=== PATIENT | male | born 1945 | race Caucasian/White ===

== ENCOUNTER 2016-09-29 23:14 | Emergency (ER) | payer OTHER ==
[~2016-09-29] VITALS: Ht 175.3 cm; Wt 80.0 kg
[~2016-09-29 23:14] MED LIST: CA CHLORIDE 10% 10 ML SYRINGE ONE; CARV12.598 GTB; CARV3.12 PO; CLOP75TA27 GTB; CLOP75TA27 PO; DEXTROSE 50% 50 ML SYRINGE ONE; DOCU-144 GTB; DOCU-144 PO; EPINEPHrine 0.1 MG/ML SYG ONE; LEVE10006 GTB; LEVE10006 PO; LORA-441 GTB; LORA2ORA2 PO; MAGNESIUM SULFATE 1 GM/100 ML D5W IVPB ONE; NA BICARBONATE 8.4% 50 ML SYG ONE; NIT4 SL; PANT40TA3 PO; PANT40TA4 PO; VALP250S3 GTB
[2016-09-29 23:15] VITALS: Ht 175.3 cm; Wt 80.0 kg
[2016-09-29] MEDS ORDERED: CLON1TAB3 PO (23:28)
[2016-09-29] MEDS ORDERED: LEVE-5 PO (23:29)
[2016-09-29] MEDS ORDERED: LOSA25TA5 PO (23:29)
[2016-09-29] MEDS ORDERED: VLP250480 PO (23:31)
[2016-09-29] MEDS ORDERED: NORepinephrine 8MG/250 ML (PMX 250 ML ONE (23:32)
[2016-09-29] MEDS ORDERED: MAGNESIUM SULFATE 1 GM/D5W 100 ML ONE (23:39)
--- NOTE | 2016-09-30 00:16 | ERA ---
ER Documentation Chief Complaint Date/Time DATE: 09/30/16 TIME: 00:14 Chief Complaint HPI 70-year-old man brought in by EMS from home for cardiac arrest. His son states he helped him to the toilet and while having a bowel movement began coughing and appeared short of breath. The coughing episode lasted for about 5 minutes and then he lost consciousness, collapsed, and stopped breathing. He called 911 right away and upon EMS arrival patient had lost pulses and initial rhythm was ventricular fibrillation. An intraosseous line was established to the right lower extremity and patient was given epinephrine and defibrillated a couple of times prior to arrival. He was placed on high flow oxygen via positive pressure bag ventilation. Patient remained unresponsive and ventricular fibrillation at the scene and throughout transport. 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 Patient was bedbound and had to be assisted to the bathroom and with feeding. He had an open tracheal stoma and normally breathes unassisted and has chronic severe dysphagia and requires a gastrostomy tube. ROS All systems reviewed and are negative except as per history of present illness. Medications Home Meds Reported Medications Valproic Acid* (Valproic Acid* Liq) 250 Mg/5 Ml Syrup, 250 MG PO QHS, ML 09/29/16 Losartan Potassium* (Losartan Potassium*) 25 Mg Tablet, 50 MG PO BID, TAB 09/29/16 Levetiracetam* (Keppra*) 500 Mg Tablet, 500 MG PO DAILY, TAB 09/29/16 Clonazepam* (Clonazepam*) 1 Mg Tablet, 2 MG PO QHS Y for ANXIETY, TAB 09/29/16 Discontinued Reported Medications Valproate Sodium (Valproic Acid) 250 Mg/5 Ml Solution, 250 MG GTB BID 09/09/13 Pantoprazole* (Protonix*) 40 Mg Tablet.dr, 40 MG PO DAILY 09/09/13 Nitroglycerin* (Nitrostat*) 0.4 Mg Tab.subl, 0.4 MG SL Q5 MIN Y 09/09/13 Lorazepam* (Ativan*) 0.5 Mg Tablet, 1 MG GTB Q4 Y 09/09/13 Levetiracetam* (Levetiracetam*) 1,000 Mg Tablet, 1000 MG GTB BID 09/09/13 Docusate Sodium* (Colace*) 100 Mg Capsule, 100 MG GTB BID 09/09/13 Clopidogrel Bisulfate (Clopidogrel) 75 Mg Tablet, 75 MG GTB DAILY 09/09/13 Carvedilol* (Coreg*) 12.5 Mg Tablet, 12.5 MG GTB BID 09/09/13 Pantoprazole (Protonix) 40 Mg Tabec, 40 MG PO DAILY 09/05/13 Docusate Sodium* (Colace*) 100 Mg Capsule, 100 MG PO BID 09/05/13 Lorazepam* (Ativan* Intensol) 2 Mg/1 Ml Oral.conc, 1 MG PO Q4 Y 09/05/13 Clopidogrel Bisulfate (Clopidogrel) 75 Mg Tablet, 75 MG PO DAILY 09/05/13 Nitroglycerin* (Nitrostat*) 0.4 Mg Tab.subl, 0.4 MG SL Y 09/04/13 Carvedilol* (Coreg*) 3.125 Mg Tablet, 12.5 MG PO BID 09/04/13 Levetiracetam* (Levetiracetam*) 1,000 Mg Tablet, 1000 MG PO BID 09/04/13 Allergies Allergies: Coded Allergies: No Known Allergy (Unverified , 09/29/16) PMhx/Soc Previous cardiac arrest with return of spontaneous circulation 3 years ago complicated by mild anoxic encephalopathy and 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, dysphagia with PEG tube placement, previous tracheostomy and open stoma, coronary artery disease, hypertension History of Surgery: Yes Anesthesia Reaction: No Hx Neurological Disorder: No Hx Respiratory Disorders: Yes Hx Cardiac Disorders: Yes Hx Psychiatric Problems: Yes Hx Miscellaneous Medical Probl: Yes (cardiac arrest,UTI,PNA,CAD,HTN, resp.failure) Hx Alcohol Use: No Hx Substance Use: No Hx Tobacco Use: No Smoking Status: Current every day smoker FmHx Family History: No diabetes Physical Exam Physical Exam GENERAL: Elderly, chronically debilitated man with a tracheal stoma which is open, clean and dry. Patient is unresponsive, eyes closed and pupils unreactive HEENT: Moist mucous membranes, pink conjunctiva, no cervical spine deformity, tracheal stoma which is patent NEURO: GCS equals 3, pupils fixed and dilated and unreactive, unresponsive without obvious focal deficits or facial asymmetry CARDIAC: No pulses palpated, no heart sounds auscultated LUNGS: Clear bilateral breath sounds with assisted positive pressure bag ventilations ABDOMEN: Soft nontender, no guarding, no rigidity, no rebound, no psoas sign no obturator sign. Normoactive bowel sounds. Vertical cicatrix near the otherwise clean gastrostomy site SKIN: Cool and clammy to touch, no obvious lacerations, abrasions, hematomas, or soft tissue crepitus EXTREMITIES: Calves appear bilaterally symmetrical, he has bilateral lower extremity muscular wasting and contractures PSYCH: Unable to assess Results 24 hrs Laboratory Tests Test 09/29/16 23:29 Bedside Glucose 97mg/dL Procedures/MDM Patient had a well-functioning right lower leg intraosseous line although peripheral IV line was also established of the left upper extremity. Endotracheal Intubation by me: Pre assessment performed. Pre-oxygenation performed with 100% oxygen RSI: Performed w/o complication or hypoxic events. Medications as ordered. Blade: Mac 4 ET Tube: 7.5 cm Depth: 22 cm at the lip Intubation confirmed by colorimetric CO2, equal breath sounds, quiet over the stomach. Immediate advanced cardiac life support and high-quality chest compressions were started in the emergency department upon arrival. Blood sugar was checked and was normal. We performed advanced cardiac life support and chest compressions for just under an hour here in the emergency department. Patient never had a palpable pulse in the emergency department. The rhythm remained mostly in fine ventricular fibrillation and at times he developed Torsades de pointes and pulseless electrical activity. The last 15 minutes of resuscitation the patient was in a bradycardic pulseless electrical activity which terminated in asystole. Throughout the course of advanced cardiac life support patient received multiple defibrillation attempts at 200 J biphasic. He also received epinephrine 1 mg multiple times intravenously, and also received calcium, sodium bicarbonate, dextrose, and a total of 3 g of magnesium sulfate. Please refer to the resuscitation log for all medications, dosages, and times. Shortly after intubation, which was performed upon arrival patient did develop blood-tinged sputum and given his irregular rhythm pattern and initial coughing fit and shortness of breath I suspect acute pulmonary embolism versus pulmonary infarct. This patient had extremely poor prognosis at presentation and I do not suspect he would have responded positively to the thrombolysis. Although it was considered I ultimately feel it would not have changed his prognosis one bit. Critical Care: Time: 32 minutes, this was time separate from other procedures including intubation and chest compressions. Treatments/Evaluations: Close monitoring and treatment of unstable vital signs, cardiorespiratory, and neurologic status, while maintaining tight balance of fluid, respiratory, and cardiac interventions. Family counseling was provided both during and after resuscitation. I pronounced this patient 00:02 September 30, 2016. His primary care physician was contacted and given the details of our resuscitation attempts. Departure Diagnosis: Primary Impression: Cardiac arrest Condition: Critical TASHA TODD MD Sep 30, 2016 00:16
== END 2016-09-30 04:00 | disposition expired ==
LOC: E/R 23:14
DX: I46.9 Cardiac arrest, cause unspecified (principal); I24.9 Acute ischemic heart disease, unspecified; I10 Essential (primary) hypertension; F17.210 Nicotine dependence, cigarettes, uncomplicated
CPT/HCPCS: 31500; 82962; 92950; 99291; J3475; J0171